=== PATIENT | female | born 1970 | race Caucasian/White ===

== ENCOUNTER → 2016-04-16 | Outpatient (CLI) | payer OTHER ==
--- NOTE | 2016-04-16 17:05 | DX ---
Chest, PA and Lateral History: Influenza pneumonia diagnosed April 05, 2016, cough and congestion Comparison: none Findings: There is bibasilar jolie hilar bronchial wall thickening without significant focal consolida tion or infiltrate. There may be a small subsegmental area of atelectasis at the right base. Heart n ormal. No pleural effusion. Impression: Airways disease.
== END ==
LOC: BMCIMAGING 16:38
PROVIDERS: ATTEND Family Medicine
DX: J45.909 Unspecified asthma, uncomplicated (principal)